=== PATIENT | male | born 1960 ===

== ENCOUNTER 2018-02-23 09:44 | Emergency (ER) | payer OTHER ==
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
--- NOTE | 2018-02-23 12:20 | RAD ---
Date of service: 02/23/2018 PROCEDURE: Right Knee Radiographs. HISTORY: pain COMPARISON: None. FINDINGS: BONES: No fracture. 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 Anterior intercondylar joint space loose body. Suprapatellar joint effusion
[2018-02-23 13:06] VITALS: BP 141/93; PULSE 63; RESP 16; TEMP 98
[2018-02-23 13:09] VITALS: O2SAT 97
== END 2018-02-23 13:07 | disposition home or self-care (01) ==
LOC: H.ER 09:44
DX: M25.561 Pain in right knee (principal); E11.9 Type 2 diabetes mellitus without complications